=== PATIENT | female | born 1985 | race Caucasian/White ===

== ENCOUNTER 2017-09-05 00:01 | Inpatient (IN) ==
[2017-09-05] MEDS ORDERED: Ibuprofen 600 MG TABLET PO ONE (00:41)
[2017-09-05 01:26] LABS: Basophils # 0.1 K/mcL (0.0-0.2); Basophils % 0.4 %; Eosinophils # 0.3 K/mcL (0.0-0.6); Eosinophils % 2.7 %; Hematocrit 40.1 % (35.3-44.9); Hemoglobin 13.2 g/dL (11.5-15.4); Immature Granulocytes % 0.4 % (0-4); Lymphocytes # 2.9 K/mcL (0.6-4.6); Mean Corpuscular HGB Conc 32.9 g/dL (31.6-35.5); Mean Corpuscular Hemoglobin 28.5 pg (28.0-33.3); Mean Corpuscular Volume 86.6 fL (83.0-100.0); Mean Platelet Volume 8.6 fL (9.4-12.4); Monocytes # 0.4 K/mcL (0.0-1.3); Monocytes % 2.9 %; Neutrophils # 8.8 K/mcL (1.6-8.9); Platelet Count 278 K/mcL (140-400); Red Blood Count 4.63 M/mcL (3.82-4.97); Red Cell Distribution Width 12.8 % (11.5-14.5); Segmented Neutrophils % 70.6 %
--- NOTE | 2017-09-05 01:32 | Emergency Department Note ---
Disposition Clinical Impression: Abscess of skin or subcutaneous tissue Qualifiers: Site of cutaneous abscess: extremity Site of cutaneous abscess of extremity: upper extremity Laterality: left Qualified Code(s): L02.414 - Cutaneous abscess of left upper limb Disposition: Admitted As Inpatient Condition: Undetermined Referrals: NONE,PCP [Primary Care Provider] - Skin/Abscess/FB HPI Chief complaint: ED Skin/Abscess/Foreign Body Stated complaint: left arm abscess Time Seen by Provider: 09/05/17 00:15 Source: patient Mode of arrival: private vehicle Limitations: no limitations Nursing Notes Reviewed: Yes Vital Signs Reviewed: Yes HPI Narrative: 32-year-old patient with a history of IV drug use presents emergency department for evaluation of large abscess to her left upper extremity. Patient states abscess appeared weeks ago. She states when the area first became red and swollen she continued to use the vein in that arm for IV drug use and area just kept getting bigger and redder. She states that she attempted to drain the pus out of the wound by removing the drainage with a needle that she uses to inject IV drugs with reusing using the needle to inject IV drugs. Patient states she has not been feeling well, has been using naproxen and ibuprofen for pain without help. She states she has had fevers that she has been taking her temperature. She denies nausea, vomiting, dyspnea, shortness of breath. Her last IV drug use was this morning. She states that if she would need admission then she would stay for the IV drug treatment. Pt Subjective Complaint: abscess/boil Onset (ago): day(s) Tetanus Up to Date: no Location: LUE Severity: moderate, severe Severity scale (1-10): 7 Quality: dull, constant Consistency: constant Improves with: none Worsens with: palpation Context: IVDA Associated symptoms: Reports: denies other symptoms Treatments prior to arrival: attempted to drain pus at home Allergies Allergy/AdvReac Type Severity Reaction Status Date / Time peroxide Allergy See Uncoded 09/05/17 00:02 Comments plastic tape Allergy See Uncoded 09/05/17 00:02 Comments All systems ED: reviewed and negative except as stated. Review of Systems: As Per HPI Past Medical History - Past Medical History Attestation: Yes The following information was validated with the patient. Source: patient Medical history: Reports: cancer Psychiatric history: Reports: anxiety, bipolar, depression - Social History Smoking Status: Current every day smoker Smokeless Tobacco Status: No Alcohol use: Reports: none Drug use: Reports: opiates, IV Drug Use Physical Exam - General Limitations: no limitations General appearance: alert, in no apparent distress - Head Head exam: atraumatic, normocephalic, normal inspection - ENT ENT exam: mucous membranes moist - Neck Neck exam: Present: normal inspection, full ROM, trachea midline - Chest Chest inspection: Present: normal inspection, symmetric chest wall rise - Respiratory Respiratory exam: Present: normal lung sounds bilaterally - Cardiovascular Cardiovascular exam: Present: regular rate, normal rhythm, normal heart sounds - Expanded Upper Extremity Exam Shoulder exam: Present: normal inspection, full ROM Arm exam: Present: full ROM, tenderness, swelling, erythema Elbow exam: Present: normal inspection, full ROM Forearm/Wrist exam: Present: normal inspection, full ROM Hand exam: Present: normal inspection, full ROM Vascular exam: Normal: capillary refill - Neurological Exam Neurological exam: Present: alert, oriented X3 - Psychiatric Psychiatric exam: Present: normal affect, normal mood - Skin Skin exam: Present: warm, dry, intact, normal color - Expanded Skin Exam 1 - large 5 inch x 4 inch abscess, fluctuant, with erythematic streaking, warm to touch, no active drainage, areas of fluctuance mixed with indurated areas Course Course Narrative: 32-year-old female. Noted with small pinpoint insertions on her bilateral arms. Large raised erythematous take lesion 5" x 3" to posterior lateral upper arm is a left side, mostly fluctuant noted with some indurated areas. Noted with 2 focal areas with entrance wounds from needle insertion. Area is warm to touch, erythema streaking extending around entire arm. Patient noted was small nonindurated, flat red area to the same side of her right arm. No signs of pustule drainage to the right side. Rest of exam benign. Labs show leukocytosis. Attending Dr. Villafuerte consult and, will provide a I&D to large area with 2 smaller insertions to drain and initiate IV antibiotics. Patient continues to be agreeable and staining. - Reevaluation(s) Reevaluation #1: Under sterile technique areas cleanse, not size with lidocaine 1% with epi, using a #11 blade first insertion made top to the wound with large amount of drainage that was purulent and sanguinous, second incision made bottom of wound in the same fashion revealed again large amount of purulent and sanguinous drainage. Nares and covered with dry dressing, IV antibiotics initiated with dual therapy of vancomycin and Zosyn. Patient tolerated the procedure well. Plan to admit under hospitalist services for IV antibiotics. Time: 02:06 Vital Signs Temperature 97.5 F L 09/05/17 00:03 Pulse Rate 90 09/05/17 00:03 Respiratory Rate 16 09/05/17 00:03 Blood Pressure 107/72 09/05/17 00:03 O2 Sat by Pulse Oximetry 99 09/05/17 00:03 Temperature 97.5 F L 09/05/17 00:03 Pulse Rate 90 09/05/17 00:03 Respiratory Rate 16 09/05/17 00:03 Blood Pressure 107/72 09/05/17 00:03 O2 Sat by Pulse Oximetry 99 09/05/17 00:03 Oxygen Delivery Oxygen Delivery Room Air Procedures - Abscess I/D Consent obtained: verbal consent Site: upper extremity Side (if applicable): left Local Anesthetic: lidocaine 1%, with epi Amount of Anesthesia Used (mL): 2 Technique: incised with #11 blade Amount of fluid: 1 (large amount) Irrigation: No Packing used?: none
[2017-09-05 01:45] LABS: BUN/Creatinine Ratio 15 (6-26); Blood Urea Nitrogen 11 mg/dL (6-20); Calcium 9.7 mg/dL (8.6-10.3); Carbon Dioxide 31 mEq/L (23-29); Chloride 100 mEq/L (98-107); Glucose 63 mg/dL (70-105); Osmolality,Calculated 281 (280-300); Potassium 3.6 mEq/L (3.5-5.1); Sodium 137 mEq/L (136-145); eGFR For African Americans > 60 (> 60); eGFR For Non-African Americans > 60 (> 60)
[2017-09-05] MEDS ORDERED: Piperacillin/Tazobactam 3.375 GM in 0.9 % Sodium Chloride Mini Bag 100 ML IVPB ONE (01:51)
[2017-09-05] MEDS ORDERED: Tdap (Boostrix) Vaccine 0.5 ML SYRINGE IM ONE (01:56)
--- NOTE | 2017-09-05 03:00 | Internal Med History&Physical ---
Date of Encounter: 09/05/17 Time of Encounter: 02:58 Assessment and Plan (1) IVDA (intravenous drug abuse) complicating Current visit: Yes Status: Chronic (2) Leukocytosis Current visit: Yes Status: Acute Qualifiers: Leukocytosis type: bandemia Qualified Code(s): D72.825 - Bandemia (3) Abscess of skin or subcutaneous tissue Current visit: Yes Status: Acute Left upper arm abscess from IV drug use will continue on vancomycin and Zosyn Qualifiers: Site of cutaneous abscess: extremity Site of cutaneous abscess of extremity : upper extremity Laterality: left Qualified Code(s): L02.414 - Cutaneous abscess of left upper limb Internal Medicine - H&P: HPI Chief complaint: left upper arm absess Admitted From: Emergency Dept Plans for Post Hospital Care: Home History of present illness: Ms. Taylor is a 32 year old female Patient with history of IV drug abuse, anxiety and bipolar disorder patient presented emergency room with the left upper arm swollen abscess she has had it for about a weeks but continued to use the site for her drug injection and is swollen become worse with painful and decided to come to the emergency room emergency room was I and D started on vancomycin and Zosyn and will be admitted for further IV antibiotic. Patient denies any fever or chills Past Med Surg Social Fam HX - Past Medical History Medical history: cancer Psychiatric history: anxiety, bipolar, depression - Social History Smoking Status: Current every day smoker Smokeless Tobacco Status: No Alcohol use: none Drug use: opiates, IV Drug Use Internal Medicine - H&P: Meds 3 Allergy/AdvReac Type Severity Reaction Status Date / Time peroxide Allergy See Uncoded 09/05/17 00:02 Comments plastic tape Allergy See Uncoded 09/05/17 00:02 Comments All Systems PM: A 10-system review of systems was performed and is negative for pertinent findings except as documented above in the HPI. - Constitutional Vitals: Temp Pulse Resp BP Pulse Ox 97.5 F L 100 16 125/80 100 09/05/17 00:03 09/05/17 02:45 09/05/17 02:45 09/05/17 02:45 09/05/17 02:45 - Head Head exam: Present: atraumatic, normocephalic - Neck Neck exam general surgery: Present: supple, trachea midline. Absent: lymphadenopathy - Respiratory Respiratory exam: Present: CTAB. Absent: accessory muscle use, rales, rhonchi, wheezes - Cardiovascular Cardiovascular exam: Present: RRR, +S1, +S2. Absent: diastolic murmur, gallop, rubs, systolic murmur - GI/Abdominal GI/Abdominal exam: Present: normal bowel sounds, soft, no peritoneal signs. Absent: distended, tenderness - Extremities Exam Extremities exam: Present: tenderness, warm Internal Med - H&P Results - Labs CBC & Chem 7: 09/05/17 00:41 09/05/17 00:41 Labs: Short CBC 09/05/17 Range/Units 00:41 WBC 12.5 H (4.3-11.1) K/mcL Hgb 13.2 (11.5-15.4) g/dL Hct 40.1 (35.3-44.9) % Plt Count 278 (140-400) K/mcL Neutrophils # 8.8 (1.6-8.9) K/mcL BMP 09/05/17 00:41 Sodium 137 Potassium 3.6 Chloride 100 Carbon Dioxide 31 H BUN 11 Creatinine 0.75 Glucose 63 L Calcium 9.7
[2017-09-05] MEDS ORDERED: Naloxone 0.4 MG/ML INJ IVP PRN (03:03)
[2017-09-05 04:49] LABS: Hematocrit 29.7 % (35.3-44.9); Mean Corpuscular HGB Conc 33.7 g/dL (31.6-35.5); Mean Corpuscular Hemoglobin 28.8 pg (28.0-33.3); Mean Corpuscular Volume 85.6 fL (83.0-100.0); Mean Platelet Volume 8.9 fL (9.4-12.4); Platelet Count 228 K/mcL (140-400); Red Blood Count 3.47 M/mcL (3.82-4.97); Red Cell Distribution Width 12.8 % (11.5-14.5)
[2017-09-05] MEDS: Acetaminophen 325 MG TABLET PO PRN ×3 (05:10→23:03)
[2017-09-05] MEDS: Nicotine 21 MG PATCH.TD24 TD SCH (05:11)
[2017-09-05] MEDS: 0.9 % Sodium Chloride 1,000 ML IVC SCH ×2 (05:12→19:09)
[2017-09-05] MEDS: *HR* Enoxaparin 40 MG/0.4 ML SYRINGE SQ SCH (05:14)
[2017-09-05 06:00] LABS: Alanine Aminotransferase 29 Units/L (7-52); Albumin 2.9 g/dL (3.5-5.7); Albumin/Globulin Ratio 1.2 (1.1-2.2); Alkaline Phosphatase 67 Units/L (34-104); Aspartate Amino Transferase 28 Units/L (13-39); BUN/Creatinine Ratio 16 (6-26); Bilirubin,Total 0.3 mg/dL (0.3-1.0); Blood Urea Nitrogen 10 mg/dL (6-20); Calcium 8.2 mg/dL (8.6-10.3); Carbon Dioxide 25 mEq/L (23-29); Chloride 109 mEq/L (98-107); Globulin 2.4 g/dL (2.4-3.5); Glucose 120 mg/dL (70-105); Magnesium 1.8 mg/dL (1.6-2.6); Osmolality,Calculated 288 (280-300); Potassium 3.8 mEq/L (3.5-5.1); Sodium 139 mEq/L (136-145); Total Protein 5.3 g/dL (6.4-8.9); eGFR For African Americans > 60 (> 60); eGFR For Non-African Americans > 60 (> 60)
[2017-09-05] MEDS: Piperacillin/Tazobactam 3.375 GM in 0.9 % Sodium Chloride Mini Bag 100 ML IVPB SCH ×2 (10:43→16:53)
[2017-09-05] MEDS: traMADol 50 MG TABLET PO PRN ×2 (10:57→17:40)
[2017-09-05] MEDS: Ondansetron 4 MG/2 ML VIAL IVP PRN (16:52)
[2017-09-05] MEDS ORDERED: Methyl Salicylate/Menthol 28 GM TUBE TP PRN (21:05)
[2017-09-06] MEDS: traMADol 50 MG TABLET PO PRN ×4 (02:53→23:36)
[2017-09-06] MEDS: Piperacillin/Tazobactam 3.375 GM in 0.9 % Sodium Chloride Mini Bag 100 ML IVPB SCH ×3 (02:53→18:29)
[2017-09-06] MEDS: *HR* Enoxaparin 40 MG/0.4 ML SYRINGE SQ SCH (06:06)
[2017-09-06] MEDS: Nicotine 21 MG PATCH.TD24 TD SCH (09:52)
[2017-09-06 14:51] LABS: Vancomycin,Trough 6 mcg/mL (5-10)
[2017-09-06 15:45] LABS: BUN/Creatinine Ratio 13 (6-26); Blood Urea Nitrogen 8 mg/dL (6-20); eGFR For African Americans > 60 (> 60); eGFR For Non-African Americans > 60 (> 60)
--- NOTE | 2017-09-06 16:45 | Internal Med Progress Note ---
Date of Encounter: 09/06/17 Time of Encounter: 12:15 - Assessment and plan (1) Abscess of skin or subcutaneous tissue Current Visit: Yes Status: Acute Assessment and plan: Presented with pain, swelling and redness at 2 separate sites in left upper arm. Incision and drainage has been done in the emergency room, no wound cultures were sent. 2 sets of peripheral blood cultures remained negative. Patient is not septic. Continue IV antibiotics-vancomycin and Zosyn. Continues to have some seropurulent discharge from the wounds. Will consult surgery for appropriate wound care recommendations. Qualifiers: Site of cutaneous abscess: extremity Site of cutaneous abscess of extremity : upper extremity Laterality: left Qualified Code(s): L02.414 - Cutaneous abscess of left upper limb (2) IVDU (intravenous drug user) Current Visit: Yes Status: Chronic Assessment and plan: Continue to monitor for withdrawal. Will use when necessary IV Ativan and antiemetics, supportive care. (3) Bipolar disorder Current Visit: Yes Status: Chronic Qualifiers: Active/Remission status: remission status unspecified Qualified Code(s): F31.9 - Bipolar disorder, unspecified (4) Tobacco abuse Current Visit: Yes Status: Chronic Assessment and plan: Nicotine transdermal patch. - Time Spent With Patient Total time spent is greater than 50% in coordination of care (as documented) at patient's floor/unit and/or counseling patient: - Subjective Interval history: Receiving wound care to left arm I&D sites. Reports improvement in left arm pain. No fever, chills, chest pain, shortness of breath. She is beginning to have tremors and some anxiety due to withdrawal. - Constitutional Vitals: Temp Pulse Resp BP Pulse Ox 98.2 F 98 18 159/91 98 09/06/17 16:15 09/06/17 16:15 09/06/17 16:15 09/06/17 16:15 09/06/17 16:15 General appearance: Present: A&O X 3, answers questions appropriately - Respiratory Respiratory exam: Present: CTAB. Absent: accessory muscle use, rales, rhonchi, wheezes - Cardiovascular Cardiovascular exam: Present: RRR, +S1, +S2. Absent: diastolic murmur, gallop, rubs, systolic murmur - GI/Abdominal GI/Abdominal exam: Present: normal bowel sounds, soft, no peritoneal signs. Absent: distended, tenderness - Extremities Exam Extremities exam: Present: warm, radial pulses palpable and symmetrical. Absent : calf tenderness, cyanotic, pedal edema Additional comments: Left lateral arm with 2 sites of incision and drainage, around 2 cm with packing and seropurulent discharge Internal Medicine: Result - Labs CBC & Chem 7: 09/05/17 04:36 09/06/17 14:00 Labs: BMP 09/06/17 14:00 BUN 8 Creatinine 0.61 Consult Discharge Plan - Plan Referrals: NONE,PCP [Primary Care Provider] -
--- NOTE | 2017-09-06 18:32 | General Surgery Consult Note ---
<Marcelino Guerin - Last Filed: 09/06/17 19:04> Date of Encounter: 09/06/17 Time of Encounter: 13:00 Assessment and Plan (1) Abscess of skin or subcutaneous tissue Current Visit: Yes Status: Acute Abscess of LUE s/p IVDA I&D performed in the ED. Plan: check LUE U/S to see if there are any remaining pockets of fluid that need to be drained. If present surgery will tkae to the OR for furthe I&D If U/S negative patient can follow up [facility] Dr. Chung in wound clinic. Continue IV abx per primary team. Continue wound care. Qualifiers: Site of cutaneous abscess: extremity Site of cutaneous abscess of extremity : upper extremity Laterality: left Qualified Code(s): L02.414 - Cutaneous abscess of left upper limb History of Present Illness Consult date: 09/06/17 Reason for consult: wound care Requesting physician: Griselda eHrnandez History of present illness: hx Ms. Taylor is a 32 year old female with PMx of IV drug abuse, anxiety and bipolar disorder who presented to [facility] ED on 09/05/17 for abscess of LUE present for several weeks. Patient reports continuing to use site to inject drugs. Pateint attempted to drain pus out of abscess on own at home, but are kept swelling and getting redder. Patient had I&D performed in the ED. Patient started on Vanc and Zosyn. Patient's incisions were packed with tail extending out of incision and wrapped in kerlex. Patient reprots area looks much better and hurts less than when she came in. Patient denies N, V, D, Fever. Pateint tolerating diet well. Past Med Surg Social Fam HX - Past Medical History Medical history: cancer Psychiatric history: anxiety, bipolar, depression - Social History Smoking Status: Current every day smoker Smokeless Tobacco Status: No Alcohol use: none Drug use: opiates, IV Drug Use - Family History Mother Hx Family Cardiac Disorders: Yes Medications and Allergies No Known Home Drugs 09/05/17 [History] 3 Allergy/AdvReac Type Severity Reaction Status Date / Time peroxide Allergy See Uncoded 09/05/17 11:07 Comments plastic tape Allergy See Uncoded 09/05/17 11:07 Comments Review of Systems All systems PM: The remainder of the systems were reviewed and are negative General Surgery Exam Initial Vital Signs Temp Pulse Resp BP Pulse Ox 97.5 F L 90 16 107/72 99 09/05/17 00:03 09/05/17 00:03 09/05/17 00:03 09/05/17 00:03 09/05/17 00:03 - General physical appearance well developed, well nourished, no distress - Eyes normal ocular movement - ENT normal mucosa - Neck trachea midline - Respiratory normal expansion, normal respiratory effort, clear to auscultation - Cardiovascular Cardiovascular exam: Present: RRR, no murmurs/rubs/gallops - Abdomen Abdomen general surgery: Present: bowel sounds present, soft, non tender - Incision Incision: Present: draining, purulent, open (Incisiosn sites form I&D packed bottom incision is drainign purulent material) - Neurologic Present: CN 2-12 grossly intact - Psychiatric Psychiatric general surgery: Present: A&Ox3, appropriate, speech is normal, memory intact Exam Initial Vital Signs Temp Pulse Resp BP Pulse Ox 97.5 F L 90 16 107/72 99 09/05/17 00:03 09/05/17 00:03 09/05/17 00:03 09/05/17 00:03 09/05/17 00:03 Results - Labs 09/05/17 04:36 09/06/17 14:00 Abnormal lab results WBC 11.5 K/mcL (4.3-11.1) H 09/05/17 04:36 RBC 3.47 M/mcL (3.82-4.97) L 09/05/17 04:36 Hgb 10.0 g/dL (11.5-15.4) L D 09/05/17 04:36 Hct 29.7 % (35.3-44.9) L 09/05/17 04:36 MPV 8.9 fL (9.4-12.4) L 09/05/17 04:36 Chloride 109 mEq/L (98-107) H 09/05/17 04:36 Glucose 120 mg/dL (70-105) H 09/05/17 04:36 Calcium 8.2 mg/dL (8.6-10.3) L 09/05/17 04:36 Serum Total Protein 5.3 g/dL (6.4-8.9) L 09/05/17 04:36 Albumin 2.9 g/dL (3.5-5.7) L 09/05/17 04:36 Diabetes panel 09/06/17 Range/Units 14:00 BUN 8 (6-20) mg/dL Creatinine 0.61 (0.60-1.20) mg/dL Pituitary panel 09/06/17 Range/Units 14:00 BUN 8 (6-20) mg/dL Creatinine 0.61 (0.60-1.20) mg/dL Adrenal panel 09/06/17 Range/Units 14:00 BUN 8 (6-20) mg/dL Creatinine 0.61 (0.60-1.20) mg/dL All other labs normal. Consult Discharge Plan - Plan Referrals: NONE,PCP [Primary Care Provider] - <Andrea Chung - Last Filed: 09/06/17 22:53> Date of Encounter: 09/06/17 Review of Systems All systems PM: The remainder of the systems were reviewed and are negative General Surgery Exam Initial Vital Signs Temp Pulse Resp BP Pulse Ox 97.5 F L 90 16 107/72 99 09/05/17 00:03 09/05/17 00:03 09/05/17 00:03 09/05/17 00:03 09/05/17 00:03 Exam Initial Vital Signs Temp Pulse Resp BP Pulse Ox 97.5 F L 90 16 107/72 99 09/05/17 00:03 09/05/17 00:03 09/05/17 00:03 09/05/17 00:03 09/05/17 00:03 Results - Labs 09/05/17 04:36 09/06/17 14:00 Abnormal lab results WBC 11.5 K/mcL (4.3-11.1) H 09/05/17 04:36 RBC 3.47 M/mcL (3.82-4.97) L 09/05/17 04:36 Hgb 10.0 g/dL (11.5-15.4) L D 09/05/17 04:36 Hct 29.7 % (35.3-44.9) L 09/05/17 04:36 MPV 8.9 fL (9.4-12.4) L 09/05/17 04:36 Chloride 109 mEq/L (98-107) H 09/05/17 04:36 Glucose 120 mg/dL (70-105) H 09/05/17 04:36 Calcium 8.2 mg/dL (8.6-10.3) L 09/05/17 04:36 Serum Total Protein 5.3 g/dL (6.4-8.9) L 09/05/17 04:36 Albumin 2.9 g/dL (3.5-5.7) L 09/05/17 04:36 Diabetes panel 09/06/17 Range/Units 14:00 BUN 8 (6-20) mg/dL Creatinine 0.61 (0.60-1.20) mg/dL Pituitary panel 09/06/17 Range/Units 14:00 BUN 8 (6-20) mg/dL Creatinine 0.61 (0.60-1.20) mg/dL Adrenal panel 09/06/17 Range/Units 14:00 BUN 8 (6-20) mg/dL Creatinine 0.61 (0.60-1.20) mg/dL All other labs normal. - Attending Attestation patient seen and examined. I have reviewed all notes, including this one. I agree with the above assessment and plan.
[2017-09-06] MEDS: Acetaminophen 325 MG TABLET PO PRN (19:34)
[2017-09-06] MEDS: *HR* LORazepam 2 MG/ML VIAL IVP PRN (19:35)
[2017-09-06] MEDS: Ondansetron 4 MG/2 ML VIAL IVP PRN (19:43)
[2017-09-07] MEDS: Piperacillin/Tazobactam 3.375 GM in 0.9 % Sodium Chloride Mini Bag 100 ML IVPB SCH ×3 (01:56→17:23)
[2017-09-07] MEDS: *HR* LORazepam 2 MG/ML VIAL IVP PRN ×3 (01:56→16:20)
[2017-09-07] MEDS: Acetaminophen 325 MG TABLET PO PRN ×3 (02:02→16:20)
[2017-09-07 02:25] LABS: Basophils % 0.3 %; Eosinophils # 0.1 K/mcL (0.0-0.6); Hematocrit 30.3 % (35.3-44.9); Hemoglobin 10.1 g/dL (11.5-15.4); Immature Granulocytes % 0.3 % (0-4); Lymphocytes # 2.3 K/mcL (0.6-4.6); Lymphocytes % 32.3 %; Mean Corpuscular HGB Conc 33.3 g/dL (31.6-35.5); Mean Corpuscular Hemoglobin 28.9 pg (28.0-33.3); Mean Corpuscular Volume 86.6 fL (83.0-100.0); Mean Platelet Volume 8.7 fL (9.4-12.4); Monocytes # 0.3 K/mcL (0.0-1.3); Monocytes % 4.8 %; Neutrophils # 4.3 K/mcL (1.6-8.9); Platelet Count 217 K/mcL (140-400); Red Cell Distribution Width 12.6 % (11.5-14.5); Segmented Neutrophils % 60.3 %
[2017-09-07 03:01] LABS: BUN/Creatinine Ratio 15 (6-26); Blood Urea Nitrogen 8 mg/dL (6-20); Calcium 8.3 mg/dL (8.6-10.3); Carbon Dioxide 24 mEq/L (23-29); Chloride 111 mEq/L (98-107); Glucose 101 mg/dL (70-105); Osmolality,Calculated 288 (280-300); Potassium 3.6 mEq/L (3.5-5.1); Sodium 140 mEq/L (136-145); eGFR For African Americans > 60 (> 60); eGFR For Non-African Americans > 60 (> 60)
[2017-09-07] MEDS: Ondansetron 4 MG/2 ML VIAL IVP PRN ×3 (04:51→18:12)
[2017-09-07] MEDS: traMADol 50 MG TABLET PO PRN ×3 (05:38→18:03)
[2017-09-07] MEDS: *HR* Enoxaparin 40 MG/0.4 ML SYRINGE SQ SCH (06:33)
[2017-09-07] MEDS: Nicotine 21 MG PATCH.TD24 TD SCH ×2 (07:49→16:09)
--- NOTE | 2017-09-07 11:19 | General Surgery Progress Note ---
<Marcelino Guerin - Last Filed: 09/07/17 15:05> Date of Encounter: 09/07/17 Time of Encounter: 08:40 - Assessment and Plan (1) Abscess of skin or subcutaneous tissue Current Visit: Yes Status: Acute Abscess of LUE s/p IVDA I&D performed in the ED. Plan: check LUE U/S (so far unable to obtain over weekend) to see if there are any remaining pockets of fluid that need to be drained. If present surgery will tkae to the OR for furthe I&D If U/S negative patient can follow up [facility] Dr. Chung in wound clinic. Continue IV abx per primary team. Continue wound care. consider increasing pain medication as patient reports more pain and is only on ultram. Qualifiers: Site of cutaneous abscess: extremity Site of cutaneous abscess of extremity : upper extremity Laterality: left Qualified Code(s): L02.414 - Cutaneous abscess of left upper limb Subjective Patient reports: still having pain, tolerating a regular diet, voiding w/o difficulty, bowel movement, afebrile Narrative: Patient reports continue pain in arm which she states is worse. Patient also reprots some nausea. Examination unchanged from prior. Patient denies Vomiting , diarrhea, fever. Objective Vital Signs - Last 8 Hours Temp Pulse Resp BP Pulse Ox 09/07/17 06:46 98.2 F 87 16 121/76 99 Intake and Output 09/06/17 09/07/17 09/07/17 23:59 07:59 15:59 Intake Total 350 / 350 350 / 350 Output Total 302 / 302 Balance 48 / 48 350 / 350 Intake: IV Fluids 350 / 350 350 / 350 Zosyn 3.375 GM In 0.9 % Sodium 100 / 100 100 / 100 Chloride (Mini-Bag +) 100 ML @ 25 mls/hr IVPB Q8H JANNETH Rx#: [id number] Vancocin 1,250 MG In 0.9 % 250 / 250 250 / 250 Sodium Chloride 250 ML @ 166.67 mls/hr IVPB Q12H JANNETH Rx#: [id number] Output: Urine 300 / 300 Right Nephrostomy 2 / 2 Other: # Voids 1 Blood Glucose* 165 - General physical appearance well developed, well nourished, moderate pain - Eyes normal ocular movement - ENT normal mucosa - Neck Neck exam: trachea midline - Respiratory normal expansion, normal respiratory effort, clear to auscultation - Cardiovascular Cardiovascular exam: Present: RRR, no murmurs/rubs/gallops - Abdomen Abdomen: Present: bowel sounds present, soft, non tender - Incision Incision: Present: draining, open - Integumentary no growths - Neurologic CN 2-12 grossly intact - Musculoskeletal normal gait, normal posture - Psychiatric oriented to time, oriented to person, oriented to place, speech is normal, memory intact - Labs 09/07/17 02:15 09/07/17 01:18 Diabetes panel 09/06/17 09/07/17 Range/Units 14:00 01:18 Sodium 140 (136-145) mEq/L Potassium 3.6 (3.5-5.1) mEq/L Chloride 111 H (98-107) mEq/L Carbon Dioxide 24 (23-29) mEq/L BUN 8 8 (6-20) mg/dL Creatinine 0.61 0.54 L (0.60-1.20) mg/dL Glucose 101 (70-105) mg/dL Calcium 8.3 L (8.6-10.3) mg/dL Calcium panel 09/07/17 Range/Units 01:18 Calcium 8.3 L (8.6-10.3) mg/dL Pituitary panel 09/06/17 09/07/17 Range/Units 14:00 01:18 Sodium 140 (136-145) mEq/L Potassium 3.6 (3.5-5.1) mEq/L Chloride 111 H (98-107) mEq/L Carbon Dioxide 24 (23-29) mEq/L BUN 8 8 (6-20) mg/dL Creatinine 0.61 0.54 L (0.60-1.20) mg/dL Glucose 101 (70-105) mg/dL Calcium 8.3 L (8.6-10.3) mg/dL Adrenal panel 09/06/17 09/07/17 Range/Units 14:00 01:18 Sodium 140 (136-145) mEq/L Potassium 3.6 (3.5-5.1) mEq/L Chloride 111 H (98-107) mEq/L Carbon Dioxide 24 (23-29) mEq/L BUN 8 8 (6-20) mg/dL Creatinine 0.61 0.54 L (0.60-1.20) mg/dL Glucose 101 (70-105) mg/dL Calcium 8.3 L (8.6-10.3) mg/dL Consult Discharge Plan - Plan Referrals: NONE,PCP [Primary Care Provider] - <Andrea Chung - Last Filed: 09/07/17 16:01> Date of Encounter: 09/07/17 Objective Vital Signs - Last 8 Hours Temp Pulse Resp BP Pulse Ox 09/07/17 14:29 98.3 F 81 16 138/91 98 09/07/17 12:00 98.1 F 76 18 142/97 100 Intake and Output 09/07/17 09/07/17 09/07/17 07:59 15:59 23:59 Intake Total 350 / 350 100 / 100 Balance 350 / 350 100 / 100 Intake: IV Fluids 350 / 350 100 / 100 Zosyn 3.375 GM In 0.9 % Sodium 100 / 100 100 / 100 Chloride (Mini-Bag +) 100 ML @ 25 mls/hr IVPB Q8H JANNETH Rx#: [id number] Vancocin 1,250 MG In 0.9 % 250 / 250 Sodium Chloride 250 ML @ 166.67 mls/hr IVPB Q12H JANNETH Rx#: [id number] Other: # Voids 1 - Labs 09/07/17 02:15 09/07/17 01:18 Diabetes panel 09/07/17 Range/Units 01:18 Sodium 140 (136-145) mEq/L Potassium 3.6 (3.5-5.1) mEq/L Chloride 111 H (98-107) mEq/L Carbon Dioxide 24 (23-29) mEq/L BUN 8 (6-20) mg/dL Creatinine 0.54 L (0.60-1.20) mg/dL Glucose 101 (70-105) mg/dL Calcium 8.3 L (8.6-10.3) mg/dL Calcium panel 09/07/17 Range/Units 01:18 Calcium 8.3 L (8.6-10.3) mg/dL Pituitary panel 09/07/17 Range/Units 01:18 Sodium 140 (136-145) mEq/L Potassium 3.6 (3.5-5.1) mEq/L Chloride 111 H (98-107) mEq/L Carbon Dioxide 24 (23-29) mEq/L BUN 8 (6-20) mg/dL Creatinine 0.54 L (0.60-1.20) mg/dL Glucose 101 (70-105) mg/dL Calcium 8.3 L (8.6-10.3) mg/dL Adrenal panel 09/07/17 Range/Units 01:18 Sodium 140 (136-145) mEq/L Potassium 3.6 (3.5-5.1) mEq/L Chloride 111 H (98-107) mEq/L Carbon Dioxide 24 (23-29) mEq/L BUN 8 (6-20) mg/dL Creatinine 0.54 L (0.60-1.20) mg/dL Glucose 101 (70-105) mg/dL Calcium 8.3 L (8.6-10.3) mg/dL - Attending Attestation I have personally seen and examined the patient. I have reviewed pertinent labs , imaging, progress notes, including this one. I agree with the above assessment and plan and wish to include the following... still awaiting US to assess for fluid collection/residual abscess; no acute surgery at this point;
--- NOTE | 2017-09-07 16:12 | Internal Med Progress Note ---
Date of Encounter: 09/07/17 Time of Encounter: 12:05 - Assessment and plan (1) Abscess of skin or subcutaneous tissue Current Visit: Yes Status: Acute Assessment and plan: Presented with pain, swelling and redness at 2 separate sites in left upper arm. Incision and drainage has been done in the emergency room, no wound cultures were sent. 2 sets of peripheral blood cultures remained negative. Patient is not septic. Continue IV antibiotics-vancomycin and Zosyn. surgery consulted, recommend U/S left arm to evaluate for remaining pockets of pus; pain control with when necessary Tylenol and tramadol. Qualifiers: Site of cutaneous abscess: extremity Site of cutaneous abscess of extremity : upper extremity Laterality: left Qualified Code(s): L02.414 - Cutaneous abscess of left upper limb (2) IVDU (intravenous drug user) Current Visit: Yes Status: Chronic Assessment and plan: Continue to monitor for withdrawal. Noted to have anxiety, tremors and some hypertension. Continue when necessary IV Ativan and antiemetics, supportive care. (3) Bipolar disorder Current Visit: Yes Status: Chronic Qualifiers: Active/Remission status: remission status unspecified Qualified Code(s): F31.9 - Bipolar disorder, unspecified (4) Tobacco abuse Current Visit: Yes Status: Chronic - Time Spent With Patient Total time spent is greater than 50% in coordination of care (as documented) at patient's floor/unit and/or counseling patient: - Subjective Interval history: Complains of worsening left arm pain. Reports withdrawal symptoms like anxiety and tremors. No fever/chills, chest pain, shortness of breath; - Constitutional Vitals: Temp Pulse Resp BP Pulse Ox 98.3 F 81 16 138/91 98 09/07/17 14:29 09/07/17 14:29 09/07/17 14:29 09/07/17 14:29 09/07/17 14:29 General appearance: Present: A&O X 3, answers questions appropriately - Respiratory Respiratory exam: Present: CTAB. Absent: accessory muscle use, rales, rhonchi, wheezes - Cardiovascular Cardiovascular exam: Present: RRR, +S1, +S2. Absent: diastolic murmur, gallop, rubs, systolic murmur - GI/Abdominal GI/Abdominal exam: Present: normal bowel sounds, soft, no peritoneal signs. Absent: distended, tenderness - Extremities Exam Extremities exam: Present: warm, radial pulses palpable and symmetrical. Absent : calf tenderness, cyanotic, pedal edema Additional comments: left arm- 2 wounds from I&D, with packing, seems better; Internal Medicine: Result - Labs CBC & Chem 7: 09/07/17 02:15 09/07/17 01:18 Labs: Short CBC 09/07/17 Range/Units 02:15 WBC 7.1 (4.3-11.1) K/mcL Hgb 10.1 L (11.5-15.4) g/dL Hct 30.3 L (35.3-44.9) % Plt Count 217 (140-400) K/mcL Neutrophils # 4.3 (1.6-8.9) K/mcL BMP 09/07/17 01:18 Sodium 140 Potassium 3.6 Chloride 111 H Carbon Dioxide 24 BUN 8 Creatinine 0.54 L Glucose 101 Calcium 8.3 L Consult Discharge Plan - Plan Referrals: NONE,PCP [Primary Care Provider] -
[2017-09-08] MEDS: traMADol 50 MG TABLET PO PRN ×3 (00:16→15:28)
[2017-09-08] MEDS: *HR* LORazepam 2 MG/ML VIAL IVP PRN ×2 (02:42→09:19)
[2017-09-08] MEDS: Piperacillin/Tazobactam 3.375 GM in 0.9 % Sodium Chloride Mini Bag 100 ML IVPB SCH ×2 (02:43→09:20)
[2017-09-08] MEDS: Acetaminophen 325 MG TABLET PO PRN ×2 (02:51→12:14)
[2017-09-08 05:34] LABS: BUN/Creatinine Ratio 11 (6-26); Blood Urea Nitrogen 7 mg/dL (6-20); Vancomycin,Trough 7 mcg/mL (5-10); eGFR For African Americans > 60 (> 60); eGFR For Non-African Americans > 60 (> 60)
[2017-09-08] MEDS: *HR* Enoxaparin 40 MG/0.4 ML SYRINGE SQ SCH (06:39)
[2017-09-08] MEDS: Ondansetron 4 MG/2 ML VIAL IVP PRN ×2 (07:33→15:28)
[2017-09-08] MEDS: Nicotine 21 MG PATCH.TD24 TD SCH (07:34)
--- NOTE | 2017-09-08 11:41 | General Surgery Progress Note ---
<Dario Kang - Last Filed: 09/08/17 11:48> Date of Encounter: 09/08/17 Time of Encounter: 09:00 - Assessment and Plan (1) Abscess of skin or subcutaneous tissue Current Visit: Yes Status: Acute Abscess of LUE s/p IVDA, I&D performed in the ED Today patient remains afebrile, incision draining Plan: Check LUE U/S; patient seen and evaluated, taken to U/S; pending If U/S negative plan for follow-up with Dr. Chung in wound clinic. Continue IV abx vanc/zosyn Continue wound care Pain in good control; regular diet tolerated Qualifiers: Site of cutaneous abscess: extremity Site of cutaneous abscess of extremity : upper extremity Laterality: left Qualified Code(s): L02.414 - Cutaneous abscess of left upper limb Subjective Narrative: Patient's pain is in control. She is mildly nauseated but denies vomiting, she denies fever/chills/malaise. She has limited appetite but is tolerating her regular diet. No concerns at this time, she is aware of plan for U/S to scan her arm, and plan for either OR or outpatient wound follow-up. Objective Vital Signs - Last 8 Hours Temp Pulse Resp BP Pulse Ox 09/08/17 07:08 98.1 F 80 18 136/94 98 Intake and Output 09/07/17 09/08/17 09/08/17 23:59 07:59 15:59 Intake Total 350 / 350 100 / 100 250 / 250 Balance 350 / 350 100 / 100 250 / 250 Intake: IV Fluids 350 / 350 100 / 100 250 / 250 Zosyn 3.375 GM In 0.9 % Sodium 100 / 100 100 / 100 Chloride (Mini-Bag +) 100 ML @ 25 mls/hr IVPB Q8H JANNETH Rx#: [id number] Vancocin 1,250 MG In 0.9 % 250 / 250 250 / 250 Sodium Chloride 250 ML @ 166.67 mls/hr IVPB Q8H JANNETH Rx#: [id number] Other: Percent of Meal Consumed 0% - General physical appearance well developed, well nourished, no distress - Eyes normal ocular movement - ENT normal mucosa - Neck Neck exam: no lymphadectomy - Respiratory normal expansion, normal respiratory effort, clear to auscultation - Cardiovascular Cardiovascular exam: Present: RRR, no murmurs/rubs/gallops. Absent: clicks - Incision Incision: Present: draining - Neurologic normal coordination, normal sensation - Psychiatric speech is normal, memory intact - Labs 09/07/17 02:15 09/08/17 04:30 Diabetes panel 09/08/17 Range/Units 04:30 BUN 7 (6-20) mg/dL Creatinine 0.63 (0.60-1.20) mg/dL Pituitary panel 09/08/17 Range/Units 04:30 BUN 7 (6-20) mg/dL Creatinine 0.63 (0.60-1.20) mg/dL Adrenal panel 09/08/17 Range/Units 04:30 BUN 7 (6-20) mg/dL Creatinine 0.63 (0.60-1.20) mg/dL Consult Discharge Plan - Plan Referrals: NONE,PCP [Primary Care Provider] - <Andrea Chung - Last Filed: 09/08/17 15:05> Date of Encounter: 09/08/17 Objective Vital Signs - Last 8 Hours Temp Pulse Resp BP Pulse Ox 09/08/17 12:29 98.1 F 85 16 143/85 93 09/08/17 07:08 98.1 F 80 18 136/94 98 Intake and Output 09/07/17 09/08/17 09/08/17 23:59 07:59 15:59 Intake Total 350 / 350 100 / 100 350 / 350 Balance 350 / 350 100 / 100 350 / 350 Intake: IV Fluids 350 / 350 100 / 100 350 / 350 Zosyn 3.375 GM In 0.9 % Sodium 100 / 100 100 / 100 100 / 100 Chloride (Mini-Bag +) 100 ML @ 25 mls/hr IVPB Q8H JANNETH Rx#: [id number] Vancocin 1,250 MG In 0.9 % 250 / 250 250 / 250 Sodium Chloride 250 ML @ 166.67 mls/hr IVPB Q8H JANNETH Rx#: [id number] Other: Percent of Meal Consumed 0% Stool Consistency loose liquid # Voids 1 # Bowel Movements 1 - Labs 09/07/17 02:15 09/08/17 04:30 Diabetes panel 09/08/17 Range/Units 04:30 BUN 7 (6-20) mg/dL Creatinine 0.63 (0.60-1.20) mg/dL Pituitary panel 09/08/17 Range/Units 04:30 BUN 7 (6-20) mg/dL Creatinine 0.63 (0.60-1.20) mg/dL Adrenal panel 09/08/17 Range/Units 04:30 BUN 7 (6-20) mg/dL Creatinine 0.63 (0.60-1.20) mg/dL - Attending Attestation I have personally seen and examined the patient. I have reviewed pertinent labs , imaging, progress notes, including this one. I agree with the above assessment and plan and wish to include the following... no drainable fluid collection cont abx follow up in my wound clinic no acute surgery general surgery will sign off; call with any questions or new concerns
[2017-09-08] MEDS ORDERED: *HR* OxyCODONE Immed Rel 5 MG TABLET PO PRN (12:21)
[2017-09-08 15:37] VITALS: BP 147/108
--- NOTE | 2017-09-08 16:16 | Discharge Summary ---
- NOTES TO OUTPATIENT PROVIDER Notes to Outpatient Provider: s/p I&D for left arm abscesses Orders not resulted at time of discharge: Pending orders 09/05/17 08:30 Culture,Blood,Additional [BC] Routine 09/09/17 05:00 Vancomycin,Trough Timed Date of Encounter: 09/08/17 Time of Encounter: 12:15 - Discharge Diagnosis (1) Abscess of skin or subcutaneous tissue Priority: Primary Status: Acute Qualifiers: Site of cutaneous abscess: extremity Site of cutaneous abscess of extremity : upper extremity Laterality: left Qualified Code(s): L02.414 - Cutaneous abscess of left upper limb (2) IVDU (intravenous drug user) Priority: Secondary Status: Chronic (3) Bipolar disorder Priority: Secondary Status: Chronic Qualifiers: Active/Remission status: remission status unspecified Qualified Code(s): F31.9 - Bipolar disorder, unspecified (4) Tobacco abuse Priority: Secondary Status: Chronic Hospital course: Ms. Taylor is a 32 year old female with history of tobacco and IV drug abuse , who was admitted with significant redness, pain and swelling in left arm. She was noted to have clinical abscesses in left lateral arm, received incision and drainage in the emergency room. Blood cultures remained negative, wound cultures are not available. She was started on IV vancomycin and Zosyn, and responded well. She was not septic, had no fever or leukocytosis. Surgery was consulted for further wound care management. Left arm ultrasound was done, which showed extensive subcutaneous edema with no focal fluid collection. Patient is currently medically stable for discharge with oral antibiotics and pain medications. Wound care instructions were provided and she is recommended to follow up in surgery wound clinic. She was noted to have mild withdrawal symptoms of anxiety, tremors and diarrhea during her hospitalization, received when necessary IV Ativan. Patient is going to stay with her mother post discharge, who will provide her wound care. Discharge discussed with: patient - Time Spent with Patient Total time spent providing and/or coordinating discharge services: Greater than 30 minutes (40 min) - Discharge Medications Prescriptions: Amoxicillin/Clavulanate [Augmentin] 875 mg PO BIDWM #14 tablet Doxycycline 100 mg PO BID #14 capsule Gauze Bandage [Gauze Pads] 1 each TP DAILY #30 bandage Gauze Bandage [Kerlix] 1 each TP DAILY #10 bandage Iodoform [Curity Iodoform] 1 each TP DAILY #3 bandage Tramadol HCl [Ultram] 50 mg PO Q6H PRN 5 Days #10 tab PRN Reason: Severe Pain Home Medications: Acetaminophen [Tylenol] 650 mg PO Q6HR PRN tablet 09/08/17 [Rx] Amoxicillin/Clavulanate [Augmentin] 875 mg PO BIDWM #14 tablet 09/08/17 [Rx] Doxycycline 100 mg PO BID #14 capsule 09/08/17 [Rx] Gauze Bandage [Gauze Pads] 1 each TP DAILY #30 bandage 09/08/17 [Rx] Gauze Bandage [Kerlix] 1 each TP DAILY #10 bandage 09/08/17 [Rx] Iodoform [Curity Iodoform] 1 each TP DAILY #3 bandage 09/08/17 [Rx] Loperamide [Imodium] 2 mg PO Q4HR PRN capsule 09/08/17 [Rx] Tramadol HCl [Ultram] 50 mg PO Q6H PRN 5 Days #10 tab 09/08/17 [Rx] Allergies/Adverse Reactions: 3 Allergy/AdvReac Type Severity Reaction Status Date / Time peroxide Allergy See Uncoded 09/05/17 11:07 Comments plastic tape Allergy See Uncoded 09/05/17 11:07 Comments Date of admission: 09/05/17 03:03 Primary care physician: PCP NONE Consults: 09/06/17 12:42 Consult to Surgery [CONS] Routine Consulting Provider: [facility] Reason for Consult: Left arm abscesses, for wound care Call Completed: Yes 09/08/17 12:30 Consult to Dope Heater [CONS] Routine Reason for SW Consult: DC planning Discharging clinician: Griselda Hernandez Anticipated date of discharge: 09/08/17 - Constitutional Vitals: Temp Pulse Resp BP Pulse Ox 98.5 F 75 17 147/108 99 09/08/17 15:36 09/08/17 15:36 09/08/17 15:36 09/08/17 15:36 09/08/17 15:36 General appearance: Present: mild distress, A&O X 3, answers questions appropriately - Cardiovascular Cardiovascular exam: Present: RRR, +S1, +S2. Absent: diastolic murmur, gallop, rubs, systolic murmur - Extremities Exam Extremities exam: Present: warm, radial pulses palpable and symmetrical. Absent : calf tenderness, cyanotic, pedal edema Additional comments: left arm- 2 areas of I&D, with serous drainage - Patient Status Disposition: Home, Self-Care Condition: Good Functional capacity at discharge: independent ambulation Overall status at discharge: patient is progressing back to baseline - Discharge Instructions Instructions: Abscess (GEN) Follow Up With: NONE,PCP [Primary Care Provider] - Additional Instructions: F/up with in wound clinic in 1 week - Diet and Activity Activity: resume usual activities as tolerated, other (Cleanse with NS, pack with 1/2 inch iodine packing strip, cover with 4x4 gauze and ABD, wrap with kerlix. Change Daily or PRN if soiled. ) Diet: advance to your usual diet, regular diet
[2017-09-08] MEDS ORDERED: Aminoglycoside Consult 1 EACH MC ONE (18:06)
== END 2017-09-08 18:07 | disposition home or self-care (01) | DRG 383 ==
LOC: EMEROO 00:01 → 3NENU 00:01 → SUATTDRO 03:03 → 3NENU 03:25
PROVIDERS: ADMIT Internal Medicine Cardiovascular Disease; ATTEND Internal Medicine